=== PATIENT | female | born 1950 | race Native Hawaiian/Other Pacific Islander ===

== ENCOUNTER 2016-10-23 13:57 | Outpatient (CLI) | payer OTHER ==
[2016-10-23 14:55] LABS: PLATELET COUNT 228 K/uL (152-353)
[2016-10-23 15:25] LABS: POTASSIUM 3.9 mmol/L (3.6-5.2); SODIUM 139 mmol/L (136-145)
== END 2016-10-23 19:08 | disposition home or self-care (01) ==
LOC: LABW 13:57
PROVIDERS: Internal Medicine
DX: E11.65 Type 2 diabetes mellitus with hyperglycemia (principal); E55.9 Vitamin D deficiency, unspecified; E03.8 Other specified hypothyroidism; I25.89 Other forms of chronic ischemic heart disease; R94.5 Abnormal results of liver function studies
CPT/HCPCS: 36415; 80053; 80061; 80074; 81000; 82043; 82306; 82565; 82570; 82607; 82746; 83036; 83090; 83735; 84436; 84439; 84443; 84479; 84481; 85027

== ENCOUNTER 2016-12-26 13:29 | Outpatient (CLI) | payer OTHER | END 2016-12-26 20:03 | disposition home or self-care (01) | LOC: RAD 13:29 | DX: R07.89 Other chest pain (principal); M54.89 Other dorsalgia ==

== ENCOUNTER 2017-01-28 23:23 | Emergency (ER) | payer OTHER ==
[~2017-01-28] VITALS: Ht 157.5 cm; Wt 73.5 kg
[~2017-01-28 23:23] MED LIST: ASA LOW DOSE81 MG OR; CLON0.1T16 PO; CLOP75TA2 PO; COZAAR100 MG PO; CRESTOR20 MG PO; FOLI1TAB26 PO; GABA300C2 PO; GLIP10TA55 PO; ISOSORBIDE DINI40 M1 PO; LEVOTHYROXIN100 MC1 PO; MECLIZINE25 MG OR; METFTAB PO; MONTELUKAST SOD10 MG PO; NITR0.4S2 SL; OMEPRAZOLE20 M1 OR; PROMETHAZINE HC50 MG OR; VENLAFAXINE75 M2 PO; VITAMIN D400 MG PO; ZANTAC300 MG PO; ZOFRAN8 MG OR
[2017-01-29] MEDS ORDERED: XANAX XR2 MG OR (00:42)
[2017-01-29] MEDS ORDERED: PERCOCET1 TA3 PO (00:43)
[2017-01-29 00:59] LABS: PLATELET COUNT 298 K/uL (152-353)
[2017-01-29 01:14] LABS: POTASSIUM 2.5 mmol/L (3.6-5.2)
[2017-01-29 02:46] VITALS: BP 185/80; TEMP 98.9
[2017-01-29] MEDS ORDERED: CLON0.1T16 PO (20:58)
[2017-01-29] MEDS ORDERED: ZOFRAN8 MG PO (21:07)
== END 2017-01-29 02:47 | disposition left against medical advice (07) ==
LOC: ED 23:23
DX: F28 Other psychotic disorder not due to a substance or known physiological condition (principal)
CPT/HCPCS: 36415; 80053; 80307; 81000; 85027; 87086; 87088; 99283; G0479; J1100; J1200; J1885; J2405

== ENCOUNTER 2017-01-29 17:39 | Emergency (ER) | payer OTHER ==
[~2017-01-29] VITALS: Ht 160 cm; Wt 74.4 kg
[2017-01-29 17:36] VITALS: BP 186/91; TEMP 97.6
[~2017-01-29 17:39] MED LIST changes: +PERCOCET1 TA3 PO; +XANAX XR2 MG OR
[2017-01-29] MEDS ORDERED: CLON0.1T16 PO (20:58)
[2017-01-29] MEDS ORDERED: ZOFRAN8 MG PO (21:07)
== END 2017-01-29 20:33 | disposition other institution (70) ==
LOC: ED 17:39
DX: Z04.6 Encounter for general psychiatric examination, requested by authority (principal); R41.82 Altered mental status, unspecified
CPT/HCPCS: 99285

== ENCOUNTER 2017-02-13 11:38 | Outpatient (CLI) | payer OTHER ==
[~2017-02-13 11:38] MED LIST changes: +ZOFRAN8 MG PO
== END 2017-02-13 12:40 | disposition home or self-care (01) ==
LOC: RAD 11:38
DX: M25.551 Pain in right hip (principal); J44.9 Chronic obstructive pulmonary disease, unspecified

== ENCOUNTER 2017-06-13 16:36 | Outpatient (CLI) | payer OTHER | END 2017-06-13 19:20 | disposition home or self-care (01) | LOC: RAD 16:36 | DX: M47.816 Spondylosis without myelopathy or radiculopathy, lumbar region (principal); M47.812 Spondylosis without myelopathy or radiculopathy, cervical region; M25.552 Pain in left hip; M25.551 Pain in right hip; M25.562 Pain in left knee; M25.561 Pain in right knee ==

== ENCOUNTER 2017-07-28 13:03 | Outpatient (CLI) | payer OTHER | END 2017-07-28 19:42 | disposition home or self-care (01) | LOC: RAD 13:03 | DX: M54.89 Other dorsalgia (principal); M85.88 Other specified disorders of bone density and structure, other site; M25.561 Pain in right knee; R39.15 Urgency of urination | CPT/HCPCS: 81000 ==

== ENCOUNTER 2017-09-08 13:39 | Outpatient (CLI) | payer OTHER | END 2017-09-08 19:22 | disposition home or self-care (01) | LOC: MRI 13:39 | DX: M47.816 Spondylosis without myelopathy or radiculopathy, lumbar region (principal) ==

== ENCOUNTER 2017-09-16 09:13 | Outpatient (CLI) | payer OTHER | END 2017-09-16 19:59 | disposition home or self-care (01) | LOC: NM 09:13 | DX: M25.551 Pain in right hip (principal); M16.10 Unilateral primary osteoarthritis, unspecified hip; M53.3 Sacrococcygeal disorders, not elsewhere classified; K52.89 Other specified noninfective gastroenteritis and colitis | CPT/HCPCS: 87015; 87045; 87205; 87324; 87449; 87899; A9561 ==

== ENCOUNTER 2017-09-26 22:08 | Emergency (ER) | payer OTHER ==
[~2017-09-26] VITALS: Ht 160 cm; Wt 62.1 kg
[2017-09-27 00:20] VITALS: BP 133/78; TEMP 98
== END 2017-09-27 00:23 | disposition home or self-care (01) ==
LOC: ED 22:08
DX: S92.255A Nondisplaced fracture of navicular [scaphoid] of left foot, initial encounter for closed fracture (principal); W18.39XA Other fall on same level, initial encounter; Y92.89 Other specified places as the place of occurrence of the external cause
CPT/HCPCS: 99283

== ENCOUNTER 2018-01-22 15:40 | Outpatient (CLI) | payer OTHER ==
[2018-01-22 16:14] LABS: POTASSIUM 3.6 mmol/L (3.6-5.2)
== END 2018-01-22 22:54 | disposition home or self-care (01) ==
LOC: LABW 15:40
PROVIDERS: Psychiatry & Neurology Neurology
DX: R53.83 Other fatigue (principal); E11.9 Type 2 diabetes mellitus without complications
CPT/HCPCS: 36415; 80053

== ENCOUNTER 2018-02-02 10:36 | Outpatient (CLI) | payer OTHER | END 2018-02-02 22:01 | disposition home or self-care (01) | LOC: LAB 10:36 | DX: R19.7 Diarrhea, unspecified (principal); E11.8 Type 2 diabetes mellitus with unspecified complications | CPT/HCPCS: 87015; 87045; 87324; 87328; 87329; 87449; 87899 ==

== ENCOUNTER → 2018-04-30 17:57 | Outpatient (CLI) | payer OTHER | END | disposition home or self-care (01) | LOC: AMB 17:57 | DX: I10 Essential (primary) hypertension (principal) ==

== ENCOUNTER 2018-05-01 16:28 | Outpatient (CLI) | payer OTHER | END 2018-05-01 16:58 | disposition short-term general hospital (02) | LOC: AMB 16:28 | DX: I49.8 Other specified cardiac arrhythmias (principal) | CPT/HCPCS: A0425; A0427 ==

== ENCOUNTER 2018-05-21 21:36 | Outpatient (CLI) | payer OTHER | END 2018-05-21 22:00 | disposition short-term general hospital (02) | LOC: AMB 21:36 | DX: S80.12XA Contusion of left lower leg, initial encounter (principal); W17.89XA Other fall from one level to another, initial encounter; Y93.89 Activity, other specified; Y92.89 Other specified places as the place of occurrence of the external cause | CPT/HCPCS: A0425; A0427 ==

== ENCOUNTER 2018-08-21 09:05 | Outpatient (CLI) | payer OTHER ==
[2018-08-21 09:49] LABS: PLATELET COUNT 224 K/uL (152-353)
== END 2018-08-21 19:37 | disposition home or self-care (01) ==
LOC: LABW 09:05
PROVIDERS: Internal Medicine
DX: E03.9 Hypothyroidism, unspecified (principal); E11.9 Type 2 diabetes mellitus without complications; E55.9 Vitamin D deficiency, unspecified; E78.5 Hyperlipidemia, unspecified; I10 Essential (primary) hypertension; R82.998 Other abnormal findings in urine
CPT/HCPCS: 36415; 80053; 80061; 81000; 82043; 82306; 82570; 83036; 84443; 85027; 87077; 87086; 87088; 87186

== ENCOUNTER 2018-09-19 16:10 | Outpatient (CLI) | payer OTHER ==
[2018-09-19 17:03] LABS: POTASSIUM 4.1 mmol/L (3.6-5.2)
== END 2018-09-19 23:42 | disposition home or self-care (01) ==
LOC: LABW 16:10
PROVIDERS: Internal Medicine
DX: R30.0 Dysuria (principal); R79.89 Other specified abnormal findings of blood chemistry
CPT/HCPCS: 80053; 81000; 87086; 87088

== ENCOUNTER 2018-11-02 10:50 | Outpatient (CLI) | payer OTHER | END 2018-11-02 19:27 | disposition home or self-care (01) | LOC: RESP 10:50 | DX: J44.9 Chronic obstructive pulmonary disease, unspecified (principal) ==

== ENCOUNTER 2018-11-17 18:29 | Outpatient (CLI) | payer OTHER | END 2018-11-17 18:34 | disposition short-term general hospital (02) | LOC: AMB 18:29 | DX: S01.81XA Laceration without foreign body of other part of head, initial encounter (principal); Y04.2XXA Assault by strike against or bumped into by another person, initial encounter; Y92.019 Unspecified place in single-family (private) house as the place of occurrence of the external cause | CPT/HCPCS: A0425; A0429 ==

== ENCOUNTER 2018-11-17 18:39 | Emergency (ER) | payer OTHER ==
[~2018-11-17] VITALS: Ht 160 cm; Wt 67.6 kg
[2018-11-17 18:39] VITALS: TEMP 98.1
[2018-11-17 20:14] LABS: PLATELET COUNT 245 K/uL (152-353)
[2018-11-17 20:27] LABS: POTASSIUM 4.4 mmol/L (3.6-5.2)
[2018-11-17 20:50] LABS: PARTIAL THROMBOPLASTIN TIME 25.2 SECONDS (24.5-33.6)
[2018-11-17 23:08] VITALS: BP 167/88
== END 2018-11-17 23:08 | disposition home or self-care (01) ==
LOC: ED 18:39
PROVIDERS: Family Medicine
DX: R51 Headache (principal); S00.03XA Contusion of scalp, initial encounter; M79.602 Pain in left arm; I10 Essential (primary) hypertension; Y09 Assault by unspecified means; Y92.89 Other specified places as the place of occurrence of the external cause
CPT/HCPCS: 36415; 80053; 85027; 85610; 85730; 99283; J7040

== ENCOUNTER 2020-01-20 11:38 | Outpatient (CLI) | payer OTHER | END 2020-01-20 22:52 | disposition home or self-care (01) | LOC: LAB 11:38 | DX: R30.0 Dysuria (principal) | CPT/HCPCS: 81000; 87077; 87086; 87088; 87186 ==

== ENCOUNTER 2020-03-04 05:17 | Emergency (ER) | payer OTHER ==
[~2020-03-04] VITALS: Ht 160 cm; Wt 74.4 kg
[2020-03-04 06:07] LABS: PLATELET COUNT 273 K/uL (152-353)
[2020-03-04 06:11] LABS: POTASSIUM 3.6 mmol/L (3.6-5.2); SODIUM 139 mmol/L (136-145)
[2020-03-04] MEDS ORDERED: PANTOPRAZOLE 40MG TA PO (06:13)
[2020-03-04] MEDS ORDERED: HYDROCHLOROT12.5 M1 PO (06:14)
[2020-03-04] MEDS ORDERED: VITAMIN D32000 UNIT PO (06:14)
[2020-03-04] MEDS ORDERED: METO50TA27 PO (06:15)
[2020-03-04] MEDS ORDERED: LOSA50TA PO (06:15)
[2020-03-04] MEDS ORDERED: ALBU90AE13 INH (06:16)
[2020-03-04] MEDS ORDERED: ALPR0.5T24 PO (06:17)
[2020-03-04] MEDS ORDERED: ALBUTEROL0.083 % INH (06:17)
[2020-03-04] MEDS ORDERED: HYDR10TA47 PO (06:18)
[2020-03-04 15:15] VITALS: BP 136/93; TEMP 98
== END 2020-03-04 14:26 | disposition still patient (30) ==
LOC: ED 05:17
PROVIDERS: Family Medicine
DX: I48.20 Chronic atrial fibrillation, unspecified (principal); R00.2 Palpitations; R07.89 Other chest pain
CPT/HCPCS: 36415; 80053; 82550; 84484; 85027; 93005; 96360; 96361; 96365; 96375; 96376; 99285; J2270; J2405; J3490

== ENCOUNTER 2020-06-19 15:13 | Emergency (ER) | payer OTHER ==
[~2020-06-19] VITALS: Ht 157.5 cm; Wt 74.8 kg
[~2020-06-19 15:13] MED LIST changes: +ALBU90AE13 INH; +ALBUTEROL0.083 % INH; +ALPR0.5T24 PO; +HYDR10TA47 PO; +HYDROCHLOROT12.5 M1 PO; +LOSA50TA PO; +METO50TA27 PO; +PANTOPRAZOLE 40MG TA PO; +VITAMIN D32000 UNIT PO
[2020-06-19 17:09] LABS: PLATELET COUNT 316 K/uL (152-353)
[2020-06-19 17:24] LABS: POTASSIUM 4.5 mmol/L (3.6-5.2)
[2020-06-19 18:16] VITALS: BP 150/60; TEMP 98.5
== END 2020-06-19 18:30 | disposition home or self-care (01) ==
LOC: ED 15:13
PROVIDERS: Emergency Medicine Emergency Medical Services
PROC: 0HQ0XZZ Repair Scalp Skin, External Approach (ICD-10-PCS; principal; 2020-06-19)
DX: S01.01XA Laceration without foreign body of scalp, initial encounter (principal); R55 Syncope and collapse; W05.0XXA Fall from non-moving wheelchair, initial encounter; Y92.89 Other specified places as the place of occurrence of the external cause
CPT/HCPCS: 80048; 85027; 90471; 90715; 93005; 99283; J2001

== ENCOUNTER 2020-07-21 13:54 | Outpatient (CLI) | payer OTHER | END 2020-07-21 23:59 | disposition home or self-care (01) | LOC: LAB 13:54 | PROVIDERS: ATTEND Internal Medicine | DX: R30.0 Dysuria (principal); R39.15 Urgency of urination; R35.0 Frequency of micturition | CPT/HCPCS: 81000; 87077; 87086; 87088; 87186 ==

== ENCOUNTER 2020-12-13 14:11 | Outpatient (CLI) | payer OTHER ==
[2020-12-13 15:01] LABS: PLATELET COUNT 260 K/uL (152-353)
[2020-12-13 15:08] LABS: POTASSIUM 4.5 mmol/L (3.6-5.2)
== END 2020-12-13 23:05 | disposition home or self-care (01) ==
LOC: LABW 14:11
PROVIDERS: ATTEND Internal Medicine
DX: F90.8 Attention-deficit hyperactivity disorder, other type (principal); E11.9 Type 2 diabetes mellitus without complications; I10 Essential (primary) hypertension; E53.8 Deficiency of other specified B group vitamins; R53.1 Weakness; R53.83 Other fatigue
CPT/HCPCS: 36415; 80053; 80061; 82306; 82607; 82728; 82746; 83540; 84443; 84466; 85027

== ENCOUNTER 2021-01-13 19:13 | Emergency (ER) | payer OTHER ==
[~2021-01-13] VITALS: Ht 157.5 cm; Wt 71.2 kg
[2021-01-13 20:56] LABS: POTASSIUM 2.7 mmol/L (3.6-5.2); SODIUM 143 mmol/L (136-145)
[2021-01-13 20:59] LABS: PLATELET COUNT 309 K/uL (152-353)
[2021-01-14 01:15] VITALS: BP 138/69; TEMP 97.8
== END 2021-01-14 01:15 | disposition home or self-care (01) ==
LOC: ED 19:13
PROVIDERS: Family Medicine
DX: D64.89 Other specified anemias (principal); R06.02 Shortness of breath; R10.84 Generalized abdominal pain
CPT/HCPCS: 36415; 80053; 81000; 82550; 84484; 85027; 87077; 87086; 87088; 87186; 93005; 96365; 99284; J0696

== ENCOUNTER 2021-04-11 13:31 | Outpatient (CLI) | payer OTHER | END 2021-04-11 19:32 | disposition home or self-care (01) | LOC: LAB 13:31 | PROVIDERS: ATTEND Internal Medicine | DX: D64.9 Anemia, unspecified (principal) | CPT/HCPCS: 36415; 82607; 82728; 82746; 83540; 84466; 85014; 85018 ==

== ENCOUNTER 2021-06-26 14:25 | Observation (INO) | payer OTHER ==
[~2021-06-26] VITALS: Ht 160 cm; Wt 63.7 kg
[2021-06-26 14:34] VITALS: BP 117/38; TEMP 97.3
[2021-06-26 15:11] LABS: POTASSIUM 5.2 mmol/L (3.6-5.2)
[2021-06-26 15:12] LABS: PLATELET COUNT 384 K/uL (152-353)
[2021-06-26 15:15] LABS: PARTIAL THROMBOPLASTIN TIME 25.6 SECONDS (24.5-33.6)
[2021-06-26 16:22] VITALS: BP 104/29
[2021-06-26 18:21] VITALS: BP 103/29; TEMP 98.4; Ht 160 cm; Wt 63.7 kg
[2021-06-26 20:00] VITALS: BP 129/56; TEMP 98.6
[2021-06-27] VITALS (11 sets, daily range): BP systolic 120–157; BP diastolic 41–77; TEMP 97.4–98.1
[2021-06-27 16:28] LABS: PLATELET COUNT 278 K/uL (152-353)
[2021-06-27 16:35] LABS: POTASSIUM 5.5 mmol/L (3.6-5.2)
== END 2021-06-27 19:40 | disposition home or self-care (01) ==
LOC: ED 14:25 → MED/SURG 15:55
PROVIDERS: Hospitalist; ADMIT Internal Medicine Endocrinology, Diabetes & Metabolism; ATTEND Internal Medicine Endocrinology, Diabetes & Metabolism
PROC: 30233N1 Transfusion of Nonautologous Red Blood Cells into Peripheral Vein, Percutaneous Approach (ICD-10-PCS; principal; 2021-06-26)
DX: D64.9 Anemia, unspecified (principal); R07.89 Other chest pain; K92.1 Melena; E11.9 Type 2 diabetes mellitus without complications; J44.9 Chronic obstructive pulmonary disease, unspecified; Z99.81 Dependence on supplemental oxygen; K21.9 Gastro-esophageal reflux disease without esophagitis; I25.10 Atherosclerotic heart disease of native coronary artery without angina pectoris; I10 Essential (primary) hypertension; E11.40 Type 2 diabetes mellitus with diabetic neuropathy, unspecified; G89.4 Chronic pain syndrome; R06.02 Shortness of breath
CPT/HCPCS: 36600; 80048; 80053; 82550; 82607; 82746; 82805; 83540; 83880; 84484; 85007; 85027; 85610; 85730; 86850; 86900; 86901; 86922; 87635; 93005; 94760; 96374; 96375; 99220; 99284; G0378; J0456; J0696; J2270; J2405; J2916; J2930; J3490; P9016; U0003

== ENCOUNTER 2021-07-02 15:12 | Outpatient (CLI) | payer OTHER ==
[2021-07-02 15:33] LABS: PLATELET COUNT 243 K/uL (152-353)
== END 2021-07-02 19:00 | disposition home or self-care (01) ==
LOC: LABW 15:12
PROVIDERS: ATTEND Internal Medicine
DX: D64.89 Other specified anemias (principal)
CPT/HCPCS: 36415; 85027

== ENCOUNTER 2021-10-17 16:12 | Outpatient (CLI) | payer OTHER ==
[2021-10-17 16:47] LABS: PLATELET COUNT 240 K/uL (152-353)
[2021-10-17 17:06] LABS: POTASSIUM 4.5 mmol/L (3.6-5.2)
== END 2021-10-17 21:37 | disposition home or self-care (01) ==
LOC: RAD 16:12
PROVIDERS: ATTEND Internal Medicine
DX: I50.9 Heart failure, unspecified (principal); R06.02 Shortness of breath; D64.89 Other specified anemias
CPT/HCPCS: 36415; 80053; 82607; 82728; 82746; 83540; 83880; 84443; 85027

== ENCOUNTER 2021-12-05 11:32 | Outpatient (CLI) | payer OTHER ==
[2021-12-05 11:48] LABS: PLATELET COUNT 221 K/uL (152-353)
== END 2021-12-05 19:14 | disposition home or self-care (01) ==
LOC: LABW 11:32
PROVIDERS: ATTEND Internal Medicine
DX: D50.8 Other iron deficiency anemias (principal)
CPT/HCPCS: 36415; 85027

== ENCOUNTER 2022-03-20 14:11 | Outpatient (CLI) | payer OTHER ==
[2022-03-20 14:22] LABS: PLATELET COUNT 314 K/uL (152-353)
== END 2022-03-20 18:54 | disposition home or self-care (01) ==
LOC: LABW 14:11
PROVIDERS: ATTEND Internal Medicine
DX: D50.8 Other iron deficiency anemias (principal)
CPT/HCPCS: 36415; 85027

== ENCOUNTER 2022-07-10 11:09 | Emergency (ER) | payer OTHER ==
[~2022-07-10] VITALS: Ht 157.5 cm; Wt 63.5 kg
[2022-07-10 11:09] VITALS: TEMP 98.6
[2022-07-10 11:56] LABS: PLATELET COUNT 301 K/uL (152-353)
[2022-07-10 12:05] LABS: POTASSIUM 4.1 mmol/L (3.6-5.2); SODIUM 135 mmol/L (136-145)
[2022-07-10 12:13] LABS: PARTIAL THROMBOPLASTIN TIME 30.7 SECONDS (24.5-33.6)
[2022-07-10 14:05] VITALS: BP 97/54
== END 2022-07-10 15:22 | disposition left against medical advice (07) ==
LOC: ED 11:09
PROVIDERS: Emergency Medicine Emergency Medical Services
DX: I50.9 Heart failure, unspecified (principal); J44.9 Chronic obstructive pulmonary disease, unspecified; Z53.29 Procedure and treatment not carried out because of patient's decision for other reasons; Z20.822 Contact with and (suspected) exposure to COVID-19; F17.210 Nicotine dependence, cigarettes, uncomplicated
CPT/HCPCS: 80053; 82805; 83735; 84484; 85027; 85379; 85610; 85730; 87040; 87502; 87635; 93005; 94660; 94664; 96360; 96365; 96366; 99283; 99284; J0696; J1940; U0003